=== PATIENT | female | born 1965 | race African-American/Black ===

== ENCOUNTER 2021-12-31 15:49 | Emergency (ER) | payer MEDICAID ==
[~2021-12-31] VITALS: Ht 162.6 cm; Wt 65.8 kg
[~2021-12-31 15:49] MED LIST: NAPR-1172 PO
[2021-12-31 17:47] VITALS: BP_SYST 144
[2021-12-31] MEDS ORDERED: DIPHENHYDRAMINE HCL 50 MG CAPSULE PO ONE (18:30)
[2021-12-31] MEDS ORDERED: DIPHENHYDRAMINE INJ 50 MG/ML VIAL IM ONE ×2 (18:30→21:00)
[2021-12-31] MEDS ORDERED: VIS50 PO ×3 (18:42→21:06)
--- NOTE | 2021-12-31 20:35 | NUR ---
PT BROUGHT IN TO ER BY SISTER VIA PRIVATE VEHICLE WITH COMPLAINTS OF ANXIETY. PT IS AOX4, AMBULATORY, VS ARE WITHIN NORMAL LIMITS. PT IS IN BED WITH BED LOWERED, LOCKED, AND RAILS UP, WILL CONTINUE TO MONITOR.
[2021-12-31] MEDS ORDERED: HYDR50TA61 PO (21:06)
[2022-01-01 02:32] VITALS: BP_SYST 128
== END 2022-01-01 06:57 | disposition home or self-care (01) ==
LOC: SED 15:49
DX: F41.9 Anxiety disorder, unspecified (principal); G47.00 Insomnia, unspecified; E78.00 Pure hypercholesterolemia, unspecified; I10 Essential (primary) hypertension; F15.20 Other stimulant dependence, uncomplicated; Z79.899 Other long term (current) drug therapy
CPT/HCPCS: 96374; 99283; J1200